=== PATIENT | male | born 1950 | race Hispanic/Latino ===

== ENCOUNTER 2016-12-31 06:43 | Day surgery (SDC) | payer MEDICARE, BC ==
[2016-12-30 12:30] VITALS: BMI 26.6
[2016-12-31 07:10] LABS: ADD MANUAL DIFF? NO
[2016-12-31 07:19] LABS: BASO # 0.06 K/mm3 (0.0-2.0); BASO % 1.1 % (0.0-3.0); EOS # 0.5 (0.0-0.7); EOS % 9.1 % (1.5-5.0); GRAN # 3.82 (1.4-6.5); GRAN % 66.9 % (50.0-68.0); HEMATOCRIT 44.5 % (42.0-52.0); LYMPH # 0.7 (1.2-3.4); LYMPH % 12.6 % (22.0-35.0); MEAN CELL VOLUME 88.6 fL (80.0-105.0); MEAN CORPUSCULAR HEMOGLOBIN 31.3 pg (25.0-35.0); MEAN CORPUSCULAR HGB CONC 35.3 g/dl (31.0-37.0); MEAN PLATELET VOLUME 9.4 fl (7.0-11.0); MONO # 0.6 (0.1-0.6); MONO % 10.3 % (1.0-6.0); PLATELET COUNT 154 10^3/uL (120.0-450.0); RED CELL DISTRIBUTION WIDTH 13.9 % (11.5-14.5); WHITE BLOOD COUNT 5.7 10^3/ul (4.5-11.0)
[2016-12-31 07:31] LABS: BLOOD UREA NITROGEN 19 mg/dL (7-21); CALCIUM 9.1 mg/dL (8.4-10.5); CARBON DIOXIDE 25 mmol/L (21-33); CHLORIDE 106 mmol/L (98-107); GFR AFRICAN-AMERICAN > 60; GLUCOSE,RANDOM 115 mg/dL (70-110); POTASSIUM 3.8 mmol/L (3.6-5.0); SODIUM 141 mmol/L (132-148)
[2016-12-31 07:32] LABS: INR 1.07 (0.93-1.08); PARTIAL THROMBOPLASTIN TIME 27.7 Seconds (23.7-30.8)
--- NOTE | 2016-12-31 07:45 | CP.SDSHP ---
Same Day Surgery H & P - History Proposed Procedure: rt lung Bx. Pre-Op Diagnosis: rt lung nodule . - Previous Medical/Surgical History Cardiac: Hypertension Pulmonary: Smoking Endocrine/Metabolic: Diabetes Neuro: Backaches, Other (periphreal neuropathy.) Pain: 0. No Pain - Allergies Allergies: Allergies No Known Allergies Allergy (Verified 03/05/12 07:37) - Physical Exam General Appearance: WNL. Vital Signs: Vital Signs 12/31/16 07:28 Temperature 97.8 F Pulse Rate 77 Respiratory 18 Rate Blood Pressure 132/82 O2 Sat by Pulse 94 L Oximetry Mental Status: Alert & Oriented x3 Neuro: WNL Heart: WNL Lungs: WNL GI: WNL - {Optional Preform as Required} Other Pertinent Findings: GERD,hiatal hernia. - Impression Impression: rt lung nodule. - Date & Time Date: 12/31/16 Time: 08:00 Short Stay Discharge - Short Stay Discharge Admitting Diagnosis/Reason for Visit: LUNG NODULE R91.1
[2016-12-31] MEDS ORDERED: Midazolam 2 MG/2 ML VIAL ONE ×2 (08:55→09:23)
[2016-12-31] MEDS ORDERED: Oxycodone/Acetaminophen 5/325 mg Tab PO PRN (09:34)
[2016-12-31] MEDS ORDERED: Sodium Chloride 0.45% 1,000 ML IV SCH (09:45)
[2016-12-31] MEDS ORDERED: Oxycodone/Acetaminophen 5/325 mg Tab ONE (11:32)
[2016-12-31 11:46] VITALS: RESP 20; TEMP 98.6
--- NOTE | 2016-12-31 11:49 | CT ---
PROCEDURE: CT guided right upper lobe lung biopsy. HISTORY: Solitary 15 mm right apical lung nodule. Evaluate for malignancy. PHYSICIAN(S): Shahbaz Holliday MD. TECHNIQUE: The relative risks and indications of the procedure were explained to the patient and consent obtained. The patient was placed supine on the CT scanner and preliminary images through the lungs obtained. Conscious sedation and monitoring were provided throughout the procedure by a nurse. There is a 15 mm crescent-shaped nodule in the right upper lobe anteriorly.. A obliques right anterior approach was selected and the area prepped and draped in the usual sterile fashion. 1% Xylocaine was used to anesthetize the skin and soft tissues. A 19 gauge guiding needle was advanced into the 15 mm right upper lobe nodule. Its position was confirmed with CT. Using coaxial technique, multiple core biopsies were obtained. The postprocedure images show no evidence of large pneumothorax or significant hemorrhage. IMPRESSION: 1. CT-guided right upper lobe lung biopsy as described above.
[2016-12-31 12:01] VITALS: BP 126/77; PULSE 65; O2SAT 95
--- NOTE | 2016-12-31 12:41 | RAD ---
HISTORY: rt lung bx COMPARISON: No prior. FINDINGS: LUNGS: No active pulmonary disease. PLEURA: No significant pleural effusion identified, no pneumothorax apparent. CARDIOVASCULAR: Normal. OSSEOUS STRUCTURES: No significant abnormalities. VISUALIZED UPPER ABDOMEN: Normal. OTHER FINDINGS: None. IMPRESSION: No active disease.
== END 2016-12-31 13:36 | disposition home or self-care (01) ==
LOC: SDS 06:43
PROVIDERS: ATTEND Radiology Vascular & Interventional Radiology
DX: C34.11 Malignant neoplasm of upper lobe, right bronchus or lung (principal); I10 Essential (primary) hypertension; F17.200 Nicotine dependence, unspecified, uncomplicated; E11.9 Type 2 diabetes mellitus without complications; G62.9 Polyneuropathy, unspecified; K21.9 Gastro-esophageal reflux disease without esophagitis; K44.9 Diaphragmatic hernia without obstruction or gangrene
CPT/HCPCS: 32405; 36415; 71010; 77012; 80048; 85025; 85610; 85730; 88305; J2250; J2405; J3010; J7030

== ENCOUNTER 2018-09-23 03:36 | Inpatient (IN) | payer MEDICARE, BC ==
[2018-09-23] MEDS ORDERED: Sodium Chloride 0.9% 1,000 ML IV STA ×2 (04:05→06:50)
--- NOTE | 2018-09-23 04:07 | ED PDOC ---
Arrival/HPI - General Chief Complaint: GI Problem Time Seen by Provider: 09/23/18 03:39 Historian: Patient - History of Present Illness Narrative History of Present Illness (Text): 09/23/18 04:04 68 year old male, whose past medical history includes lung cancer, prostate cancer, hypertension, and esophageal stricture, presents to the emergency department complaining of left sided flank/abdominal discomfort associated with inability to have a bowel movement, nausea, and decrease appetite that began yesterday morning. Patient denies any similar symptoms in the past. Patient denies any fever, chills, chest pain, shortness of breath, vomiting, diarrhea, urinary symptoms, back pain, neck pain, headache, dizziness, or any other complaints. PMD: Dr. Josette Holliday Time/Duration: 24 hours Symptom Onset: Gradual Symptom Course: Unchanged Activities at Onset: Light Context: Home Past Medical History - Provider Review Nursing Documentation Reviewed: Yes - Cardiac Hx Hypertension: Yes Hx Pacemaker: No - Pulmonary Other/Comment: R lobectomy - Neurological Hx Paralysis: No (NEUROPATHY--FEET BILATERAL) - Hematological/Oncological Hx Blood Transfusions: No - Musculoskeletal/Rheumatological Hx Musculoskeletal Disorders: Yes - Genitourinary/Gynecological Hx Prostate Cancer: Yes - Psychiatric Hx Emotional Abuse: No Hx Physical Abuse: No Hx Substance Use: No - Surgical History Other/Comment: 4 knee surgeries. shoulder surgery. nose surgery - Anesthesia Hx Anesthesia Reactions: Yes (PREVIOUSLY R/T/ ETOH INTAKE WHEN HAD SURGERY) Hx Malignant Hyperthermia: No - Suicidal Assessment Feels Threatened In Home Enviroment: No Family/Social History - Physician Review Nursing Documentation Reviewed: Yes Family/Social History: No Known Family HX Smoking Status: Never Smoked Hx Alcohol Use: No Hx Substance Use: No Allergies/Home Meds Allergies/Adverse Reactions: Allergies No Known Allergies Allergy (Verified 09/23/18 03:58) Home Medications: Home Meds Medication Instructions Recorded Confirmed Losartan [Cozaar] 100 mg PO QAM 06/30/13 09/23/18 Esomeprazole Magnesium [Nexium] 20 mg PO DAILY 12/30/16 09/23/18 Zolpidem [Ambien] 10 mg PO HS PRN 12/30/16 09/23/18 Review of Systems - Physician Review All systems were reviewed & negative as marked: Yes - Review of Systems Constitutional: absent: Fevers, Other (Chills) Respiratory: absent: SOB Cardiovascular: absent: Chest Pain Gastrointestinal: Abdominal Pain, Nausea, Appetite Changes, Other (inability to have a bowel movement) Genitourinary Male: absent: Dysuria, Frequency, Hematuria Musculoskeletal: absent: Back Pain, Neck Pain Neurological: absent: Headache, Dizziness Physical Exam Vital Signs Reviewed: Yes Vital Signs Temp Pulse Resp BP Pulse Ox 09/23/18 03:57 99.2 F 79 20 191/111 H 96 Temperature: Afebrile Blood Pressure: Hypertensive Pulse: Regular Respiratory Rate: Normal Appearance: Positive for: Well-Appearing, Non-Toxic, Comfortable Pain Distress: None Mental Status: Positive for: Alert and Oriented X 3 - Systems Exam Head: Present: Atraumatic, Normocephalic Pupils: Present: PERRL Extroacular Muscles: Present: EOMI Conjunctiva: Present: Normal Mouth: Present: Moist Mucous Membranes Neck: Present: Normal Range of Motion Respiratory/Chest: Present: Clear to Auscultation, Good Air Exchange. No: Respiratory Distress, Accessory Muscle Use Cardiovascular: Present: Regular Rate and Rhythm, Normal S1, S2. No: Murmurs Abdomen: Present: Tenderness (mild left-sdied tenderness). No: Distention, Peritoneal Signs, Rebound, Guarding, McBurney's Point Tender Back: Present: Normal Inspection, CVA Tenderness (left) Upper Extremity: Present: Normal Inspection. No: Cyanosis, Edema Lower Extremity: Present: Normal Inspection. No: Edema Neurological: Present: GCS=15, CN II-XII Intact, Speech Normal, Motor Func Grossly Intact, Normal Sensory Function Skin: Present: Warm, Dry, Normal Color. No: Rashes Psychiatric: Present: Alert, Oriented x 3, Normal Insight, Normal Concentration Medical Decision Making ED Course and Treatment: 09/23/18 04:05 Impression: 68 year old male presents complaining of left sided abdominal/flank discomfort associated with inability to have a bowel movement, decrease appetite, and nausea that began yesterday morning. Plan: -- CT Abd & Pelvis IV Contrast -- Labs -- IV Fluids -- Zofran Inj -- Reassess and disposition Prior Visits: Notes and results from previous visits were reviewed. Progress Notes: 09/23/18 06:53 Case was discussed with who accepts to his service/request /Clint on consult. - Lab Interpretations I have reviewed the lab results: Yes - RAD Interpretation Narrative RAD Interpretations (Text): 09/23/18 06:30 CT Abd/Pelvis- CLINICAL HISTORY: Left-sided abdominal pain. TECHNIQUE: Multiple axial and coronal CT images were obtained through the abdomen and pelvis after administration of intravenous contrast material. COMMENTS: Fat containing umbilical hernia without incarceration. 4.7 mm obstructing stone of the left ureter at L4/L5 level. Mild left hydroureteronephrosis with perinephric fat stranding. 3 mm left renal nonobstructing stone. Left renal simple cysts with the largest measuring 2.5 cm. Uncomplicated colonic diverticulosis. Mild constipation. Mild prostatomegaly. Mild diffuse thickening of the bladder. Fat containing left inguinal hernia without incarceration. Distended, mildly thickened gallbladder. Impacted gallstone in the neck of the gallbladder. The liver is of uniform attenuation without mass or defect. There is no intra or extrahepatic biliary ductal dilatation. The spleen is normal. The pancreas is of normal contour and attenuation characteristics. There is no evidence of adrenal mass. Both kidneys demonstrate prompt and equal nephrograms. The kidneys are normal in size, shape and configuration. There is no evidence of renal or ureteral mass. No right ureteral calculi are identified. There is no right hydroureter or hydronephrosis. No evidence for appendicitis. There is no bowel wall thickening. No evidence for small or large bowel obstruction. There is no evidence of abdominal ascites or lymphadenopathy. There is no evidence of intrinsic or extrinsic bladder mass. There is no pelvic ascites or lymphadenopathy. Images of the lung bases show no evidence of pleural or parenchymal mass. There are no pleural effusions. The bony structures are free of lytic or blastic le sions. IMPRESSION: Fat containing umbilical hernia without incarceration. 4.7 mm obstructing stone of the left ureter at L4/L5 level. Mild left hydroureteronephrosis with perinephric fat stranding. 3 mm left renal nonobstructing stone. Left renal simple cysts with the largest measuring 2.5 cm. Uncomplicated colonic diverticulosis. Mild constipation. Mild prostatomegaly. Mild diffuse thickening of the bladder. Fat containing left inguinal hernia without incarceration. Distended, mildly thickened gallbladder. Impacted gallstone in the neck of the gallbladder. Sonographic evaluation is suggested to exclude developing acute inflammatory pathology. Medical Photographer: Radiologist - Scribe Statement The provider has reviewed the documentation as recorded by the Scribe Arjun Aminour Provider Michelle Attestation: All medical record entries made by the Michelle were at my direction and personally dictated by me. I have reviewed the chart and agree that the record accurately reflects my personal performance of the history, physical exam, medical decision making, and the department course for this patient. I have also personally directed, reviewed, and agree with the discharge instructions and disposition. Disposition/Present on Arrival - Present on Arrival Any Indicators Present on Arrival: No History of DVT/PE: No History of Uncontrolled Diabetes: No Urinary Catheter: No History of Decub. Ulcer: No History Surgical Site Infection Following: None - Disposition Have Diagnosis and Disposition been Completed?: Yes Diagnosis: Renal colic on left side, Nephrolithiasis, Cholelithiasis Disposition: HOSPITALIZED Disposition Time: 06:46 Patient Plan: Admission Patient Problems: Current Active Problems Problem Status Onset Cholelithiasis Acute Nephrolithiasis Acute Renal colic on left side Acute Condition: STABLE Forms: [facility] (Kiswahili)
[2018-09-23] MEDS ORDERED: Morphine 2 mg/ml ISec IVP STA (04:45)
[2018-09-23] MEDS ORDERED: Iohexol 350 MG/100 ML VIAL ONE (04:52)
[2018-09-23 05:12] LABS: HEMOGLOBIN 15.9 g/dL (14.0-18.0); MEAN CELL VOLUME 90.2 fl (80.0-105.0); MEAN CORPUSCULAR HEMOGLOBIN 30.5 pg (25.0-35.0); MEAN CORPUSCULAR HGB CONC 33.8 g/dl (31.0-37.0); MEAN PLATELET VOLUME 9.5 fl (7.0-11.0); RBC 5.21 10^6/uL (3.5-6.1); RED CELL DISTRIBUTION WIDTH 14.1 % (11.5-14.5); WHITE BLOOD COUNT 7.4 10^3/uL (4.5-11.0)
[2018-09-23 05:28] LABS: ALB/GLOB RATIO 1.7 (1.1-1.8); ALBUMIN 4.6 g/dL (3.0-4.8); ALT/SGPT 34 U/L (7-56); AST/SGOT 30 U/L (17-59); BLOOD UREA NITROGEN 18 mg/dL (7-21); GFR NON-AFRICAN AMERICAN > 60; LIPASE 64 U/L (23-300)
--- NOTE | 2018-09-23 09:03 | HP ---
DATE OF EXAM: 09/23/2018 HISTORY OF PRESENT ILLNESS: I was called down to the emergency room to admit him by the ER doctor. He is a 68-year-old white man who presents to the emergency room complaining of left-sided flank pain, abdominal pain with, problem having a bowel movement, also nauseous and decreased appetite began 24 to 48 hours and severe constipation. He is a 68-year-old white male with past medical history including lung cancer, prostate cancer, hypertension, esophageal stricture. He sees Dr. Clint STORY. He has neuropathy in both his feet. He had a right lobectomy. He has prostate cancer. He had 4 knee surgeries, shoulder surgery, surgery. FAMILY HISTORY: No known family history. SOCIAL HISTORY: Never smoked. No alcohol. No drugs. ALLERGIES: NO KNOWN DRUG ALLERGIES. MEDICATIONS: He is on Cozaar for blood pressure, Nexium for GERD and Ambien for insomnia. REVIEW OF SYSTEMS: No fever or chills. No shortness of breath, no chest pain or palpitations. He has abdominal pain and appetite changes. He can have a bowel movement, feels constipated. He has no problems urinating. No pain with urination. No blood. No back pain, no neck pain, no headache or dizziness. PHYSICAL EXAMINATION: VITAL SIGNS: 99.2 temperature, 79 pulse, 20 respiratory rate, 199/111 blood pressure is very high, 96% O2 sat is having a temperature. GENERAL: He is well appearing, nontoxic after morphine. Alert and oriented x3, was having severe back pain. HEENT: Head is atraumatic, normocephalic. Extraocular muscles are intact. Pupils are equal and reactive to light and accommodation. Throat is moist. NECK: Supple. HEART: Regular rate. Normal S1, S2. LUNGS: Decreased breath sounds but clear to auscultation bilaterally. ABDOMEN: He is tender, left-sided tenderness, quite painful, questionable guarding, no rebound. No guarding, no rebound in other parts of the belly. Mild CVA tenderness in the left. EXTREMITIES: No edema. GCS is 15. NEUROLOGIC: Cranial nerves II-XII grossly intact. Normal speech. Alert and oriented x3. SKIN: Warm and dry. No apparent rashes or ulcers. LYMPH: Thyroid midline. No palpable appreciable lymphadenopathy. LABORATORY DATA: He had multiple tests done. He has a 143 sodium, potassium 4.1, BUN 82, creatinine 1, GFR is greater than 60, sugar is 131, calcium is 10. Total bili is 1.4, AST is 30, ALT 34, alk phos 62, total protein 7.4. Albumin is 4.6, lipase is 64. He has 7.4 white count, 15.9 hemoglobin, 47 hematocrit, 194 platelets. He did have a CT scan of the abdomen and pelvis, it has not resulted yet. centimeter obstructing stone with fever. He also has a gallstone. He has abdominal pain, hypertension, temperature, he will be on his IV fluids, Ambien, Cozaar, Protonix IV. He will be n.p.o. except for meds. Last temperature was 99. Last blood pressure was 147/91, so when the pain is away, his blood pressure definitely comes back down. We will keep a close eye on him. We will see what the doctors have to say. He might need to have a stent placed for the stone. The patient is here for renal colic, gallstone, abdominal pain and hypertension. Eyad Worley DO MTDD
--- NOTE | 2018-09-23 09:37 | CP.PCM.CON ---
<Romero Reinoso - Last Filed: 09/23/18 11:50> History of Present Illness - History of Present Illness History of Present Illness: PGY6 GI Fellow Consult Note Patient is a 68yo male with PMHx significant for right upper lobe lung cancer s/p lobectomy, prostate cancer s/p XRT, Medel's esophagus, eosinophilic esophagitis, distal esophageal stricture (suspect peptic stricture) s/p multiple balloon dilations and hiatal hernia who presented to the ED with left sided abdominal/flank pain. Pain began yesterday morning and progressively intensified to the point where he could not sleep and came to the ED for evaluation. Symptoms began in the LUQ and radiated downward and in to his left flank and back. He denies any dysuria, hematuria, nausea, vomiting or postprandial discomfort but does admit to constipation for 2 days. He has a history of a distal esophageal stricture and eosinophilic esophagitis which dysphagia in the past. Admits to intermittent dysphagia and globus sensation for which he has modified his diet and pays attention to chew food well. Denies any weight loss, odynophagia. 12 system ROS performed and negative except where stated PMHx: See HPI PSHx: RUL lobectomy, left knee and shoulder arthroscopy FHx: Discussed with patient and he denies significant family history Social: Former tobacco/marijuana smoker (quit>20 years ago), former EtOH use (quit >4 years ago) Endo: Multiple endoscopies with most recent on 04/26/2015; prior colonoscopy incomplete due to poor prep Past Patient History - Past Social History Smoking Status: Never Smoked - CARDIAC Hx Hypertension: Yes Hx Pacemaker: No - PULMONARY Other/Comment: R lobectomy - NEUROLOGICAL Hx Paralysis: No (NEUROPATHY--FEET BILATERAL) - HEMATOLOGICAL/ONCOLOGICAL Hx Blood Transfusions: No - MUSCULOSKELETAL/RHEUMATOLOGICAL Hx Musculoskeletal Disorders: Yes - GENITOURINARY/GYNECOLOGICAL Hx Prostate Cancer: Yes - PSYCHIATRIC Hx Emotional Abuse: No Hx Physical Abuse: No - SURGICAL HISTORY Other/Comment: 4 knee surgeries. shoulder surgery. nose surgery - ANESTHESIA Hx Anesthesia Reactions: Yes (PREVIOUSLY R/T/ ETOH INTAKE WHEN HAD SURGERY) Hx Malignant Hyperthermia: No Meds Allergies/Adverse Reactions: Allergies Allergy/AdvReac Type Severity Reaction Status Date / Time No Known Allergies Allergy Verified 09/23/18 03:58 - Medications Medications: Current Medications Sodium Chloride (Sodium Chloride 0.9%) 1,000 mls @ 100 mls/hr IV .Q10H STA Stop: 09/23/18 16:49 Last Admin: 09/23/18 09:11 Dose: 100 mls/hr Losartan Potassium (Cozaar) 100 mg PO QAM [facility] Last Admin: 09/23/18 09:10 Dose: 100 mg Morphine Sulfate (Morphine) 2 mg IVP Q3 PRN PRN Reason: Pain, moderate (4-7) Ondansetron HCl (Zofran Inj) 4 mg IVP Q6H PRN PRN Reason: Nausea/Vomiting Pantoprazole Sodium (Protonix Inj) 40 mg IVP DAILY [facility] Last Admin: 09/23/18 09:10 Dose: 40 mg Zolpidem Tartrate (Ambien) 10 mg PO HS PRN; Protocol PRN Reason: Insomnia Physical Exam - Constitutional Appears: Non-toxic, No Acute Distress - Eye Exam Eye Exam: EOMI, PERRL - ENT Exam ENT Exam: Mucous Membranes Moist - Respiratory Exam Respiratory Exam: Clear to Auscultation Bilateral. absent: Rales, Rhonchi, Wheezes - Cardiovascular Exam Cardiovascular Exam: RRR, +S1, +S2 - GI/Abdominal Exam GI & Abdominal Exam: Normal Bowel Sounds, Soft. absent: Distended, Firm, Guarding, Organomegaly, Rigid, Tenderness - Extremities Exam Extremities exam: Positive for: normal inspection. Negative for: pedal edema - Neurological Exam Neurological exam: Alert, Oriented x3 - Psychiatric Exam Psychiatric exam: Normal Affect, Normal Mood - Skin Skin Exam: Dry, Warm Results - Vital Signs Recent Vital Signs: Last Vital Signs Temp 99 F 09/23/18 07:36 Pulse 71 09/23/18 07:36 Resp 16 09/23/18 07:36 BP 147/91 H 09/23/18 07:36 Pulse Ox 96 09/23/18 07:36 - Labs Result Diagrams: 09/23/18 04:12 09/23/18 04:12 Labs: Laboratory Results - last 24 hr 09/23/18 09/23/18 04:12 04:12 WBC 7.4 RBC 5.21 Hgb 15.9 Hct 47.0 MCV 90.2 MCH 30.5 MCHC 33.8 RDW 14.1 Plt Count 194 MPV 9.5 Sodium 143 Potassium 4.1 Chloride 105 Carbon Dioxide 29 Anion Gap 13 BUN 18 Creatinine 1.0 Est GFR ( Amer) > 60 Est GFR (Non-Af Amer) > 60 Random Glucose 131 H Calcium 10.0 Total Bilirubin 1.4 H AST 30 ALT 34 Alkaline Phosphatase 62 Total Protein 7.4 Albumin 4.6 Globulin 2.8 Albumin/Globulin Ratio 1.7 Lipase 64 Assessment & Plan - Assessment and Plan (Free Text) Assessment: Patient is a 68yo male with PMHx significant for right upper lobe lung cancer s/p lobectomy, prostate cancer s/p XRT, Medel's esophagus, eosinophilic esophagitis, distal esophageal stricture (suspect peptic stricture) s/p multiple balloon dilations and hiatal hernia who presented to the ED with left sided abdominal/flank pain -Left sided abdominal and flank pain suspect 2/2 left nephrolithiasis/hydronephrosis, renal colic -Cholelithiasis -Intermittent dysphagia with H/O distal esophageal stricture -H/O lung/prostate cancer -H/O Medel's esophagus without dysplasia -H/O Eosinophilic esophagitis Plan: -Suspect discomfort a result of left sided nephrolithiasis/renal colic, tx per primary service -Incidental finding of cholelithiasis on CT imaging -Given elevated T bili - check direct bilirubin r/o Gilbert's syndrome -Check U/S abdomen to further evaluate -Diet as tolerated -Plan for outpatient EGD given H/O stricture and for BE surveillance - Date & Time Date: 09/23/18 Time: 08:30 <Miriam Jaramillo V - Last Filed: 09/23/18 22:04> Meds - Medications Medications: Current Medications [facility]) [facility] [place] Last Admin: 09/23/18 09:10 Dose: 100 mg Morphine Sulfate (Morphine) 2 mg IVP Q3 PRN PRN Reason: Pain, moderate (4-7) Last Admin: 09/23/18 19:52 Dose: 2 mg Ondansetron HCl (Zofran Inj) 4 mg IVP Q6H PRN PRN Reason: Nausea/Vomiting Pantoprazole Sodium (Protonix Inj) 40 mg IVP DAILY [facility] Last Admin: 09/23/18 09:10 Dose: 40 mg Sodium Chloride ([place] Nasal [place]) 0 ml NS Q2H PRN PRN Reason: Nasal congestion Zolpidem Tartrate (Ambien) 10 mg PO HS PRN; Protocol PRN Reason: Insomnia Results - Vital Signs Recent Vital Signs: Last Vital Signs Temp 97.8 F 09/23/18 17:04 Pulse 60 09/23/18 17:04 Resp 20 09/23/18 17:04 BP 118/80 09/23/18 17:04 Pulse Ox 95 09/23/18 17:04 - Labs Result Diagrams: 09/23/18 04:12 09/23/18 04:12 Labs: Laboratory Results - last 24 hr 09/23/18 09/23/18 09/23/18 04:12 04:12 05:00 WBC 7.4 RBC 5.21 Hgb 15.9 Hct 47.0 MCV 90.2 MCH 30.5 MCHC 33.8 RDW 14.1 Plt Count 194 MPV 9.5 Sodium 143 Potassium 4.1 Chloride 105 Carbon Dioxide 29 Anion Gap 13 BUN 18 Creatinine 1.0 Est GFR ( Amer) > 60 Est GFR (Non-Af Amer) > 60 Random Glucose 131 H Calcium 10.0 Total Bilirubin 1.4 H Direct Bilirubin 0.2 AST 30 ALT 34 Alkaline Phosphatase 62 Total Protein 7.4 Albumin 4.6 Globulin 2.8 Albumin/Globulin Ratio 1.7 Lipase 64 Urine Color Urine Appearance Urine pH Ur Specific [place] Urine Protein Urine Glucose (UA) Urine Ketones Urine Blood Urine Nitrate Urine Bilirubin Urine Urobilinogen Ur Leukocyte Esterase Urine RBC Urine WBC Ur Epithelial Cells Urine Bacteria 09/23/18 10:45 WBC RBC Hgb Hct MCV MCH MCHC RDW Plt Count MPV Sodium Potassium Chloride Carbon Dioxide Anion Gap BUN Creatinine Est GFR ( Amer) Est GFR (Non-Af Amer) Random Glucose Calcium Total Bilirubin Direct Bilirubin AST ALT Alkaline Phosphatase Total Protein Albumin Globulin Albumin/Globulin Ratio Lipase Urine Color Yellow Urine Appearance Clear Urine pH 6.0 Ur Specific [place] 1.015 Urine Protein Negative Urine Glucose (UA) Negative Urine Ketones Negative Urine Blood Moderate H Urine Nitrate Negative Urine Bilirubin Negative Urine Urobilinogen 0.2 Ur Leukocyte Esterase Negative Urine RBC 20 - 25 H Urine WBC 0 - 2 Ur Epithelial Cells 0 - 2 Urine Bacteria Few Attending/Attestation - Attestation I have personally seen and examined this patient.: Yes I have fully participated in the care of the patient.: Yes I have reviewed all pertinent clinical information: Yes Notes (Text): This is an addendum to GI consult report dictated by the GI Fellow. The patient was seen and examined earlier. Medical records, lab studies, imagings were reviewed. Last 24 hours events reviewed. Agreed with the above treatment plan as outlined in GI Fellow 's notes with the addition of the following patient admitted with abdominal pain,flank pain probably ureteric colic CT scan and sonogram were reviewed patient was also found to have gallstones with borderline dilated CBD measuring 6.4mm ?prominent PD requested MRI with MRCP to further evaluate History of Medel's esophaus History of eosinophilic esophagitis History of colon polyp Continue PPI Elective EGD and colonoscopy urology follow-up 09/23/18 21:36 7
[2018-09-23 09:47] VITALS: BMI 27.2
[2018-09-23] MEDS: Morphine 2 mg/ml ISec IVP PRN ×4 (09:50→23:58)
--- NOTE | 2018-09-23 09:56 | CT ---
Date of service: 09/23/2018 PROCEDURE: CT Abdomen and Pelvis with contrast HISTORY: abdominal pain COMPARISON: None. TECHNIQUE: Contrast dose: Radiation dose: Total exam DLP = 1029.08 mGy-cm. This CT exam was performed using one or more of the following dose reduction techniques: Automated exposure control, adjustment of the mA and/or kV according to patient size, and/or use of iterative reconstruction technique. FINDINGS: LOWER THORAX: Elevated right hemidiaphragm. Small hiatal hernia. LIVER: Multiple hepatic cysts. GALLBLADDER AND BILE DUCTS: Gallstones. PANCREAS: Unremarkable. No gross lesion or ductal dilatation. SPLEEN: Unremarkable. ADRENALS: Unremarkable. No mass. KIDNEYS AND URETERS: Bilateral renal cysts with a hydronephrotic left kidney. With a roughly 3 millimeter calculus in the mid left ureter accompanying periureteral and perinephric infiltration. VASCULATURE: Unremarkable. No aortic aneurysm. No aortic atherosclerotic calcification or mural plaque present. BOWEL: Unremarkable. No obstruction. No gross mural thickening. APPENDIX: Normal appendix. PERITONEUM: Unremarkable. No free fluid. No free air. LYMPH NODES: Unremarkable. No enlarged lymph nodes. BLADDER: Unremarkable. REPRODUCTIVE: Unremarkable. BONES: No acute fracture. OTHER FINDINGS: None. IMPRESSION: Bilateral renal cysts with a hydronephrotic left kidney. With a roughly 3 millimeter calculus in the mid left ureter accompanying periureteral and perinephric infiltration.
[2018-09-23 10:55] LABS: URINE APPEARANCE CLEAR (CLEAR); URINE BILIRUBIN NEGATIVE (NEGATIVE); URINE BLOOD MODERATE (NEGATIVE); URINE COLOR YELLOW (YELLOW); URINE GLUCOSE (UA) NEGATIVE (NEGATIVE); URINE LEUKOCYTE ESTERASE NEGATIVE Leu/uL (NEGATIVE); URINE PROTEIN NEGATIVE mg/dL (<30 mg/dL); URINE UROBILINOGEN 0.2 E.U./dL (<1 E.U./dL)
[2018-09-23 11:03] LABS: URINE BACTERIA FEW /hpf; URINE EPITHELIAL CELLS 0 - 2 /hpf (0-5); URINE RBC 20 - 25 /hpf (0-2); URINE WBC 0 - 2 /hpf (0-6)
--- NOTE | 2018-09-23 14:11 | US ---
Date of service: 09/23/2018 HISTORY: abdominal pain COMPARISON: None. TECHNIQUE: Sonographic evaluation of the abdomen. FINDINGS: LIVER: Measures cm. Normal echogenicity of the liver parenchyma. 2 centimeter right hepatic cyst. GALLBLADDER: Multiple gallstones. No wall thickening or pericholecystic fluid. COMMON BILE DUCT: Measures mm. No stones. No dilatation. PANCREAS: Not visualized. RIGHT KIDNEY: Measures cm. Normal echogenicity. No calculus, mass, or hydronephrosis. LEFT KIDNEY: Measures cm. 6.4 centimeter left pole renal cyst. SPLEEN: Normal in size and contour. No mass. AORTA: No aneurysmal dilatation. IVC: Unremarkable. OTHER FINDINGS: Limited by bowel gas. IMPRESSION: Multiple gallstones. Left upper pole renal cyst. Limited examination due to bowel gas.
--- NOTE | 2018-09-23 17:19 | RAD ---
Date of service: 09/23/2018 HISTORY: OR in am COMPARISON: 12/31/2016 FINDINGS: LUNGS: No active pulmonary disease. PLEURA: No significant pleural effusion identified, no pneumothorax apparent. CARDIOVASCULAR: No atherosclerotic calcification present Normal. OSSEOUS STRUCTURES: No significant abnormalities. VISUALIZED UPPER ABDOMEN: Normal. OTHER FINDINGS: None. IMPRESSION: No active disease. No significant interval change compared to the prior examination(s).
--- NOTE | 2018-09-23 18:46 | CARD ---
APPROVED REPORT Date of service: 09/23/2018 EKG Measurement Heart [id number] <Conclusion> Normal sinus rhythm Inferior infarct, age undetermined Abnormal ECG
--- NOTE | 2018-09-23 21:09 | PCM.URO ---
Urology Progress Note - Subjective Abdominal Pain: Yes (pt for cystoscopy) - Objective Lab Results Last 24 Hours: Laboratory Results - last 24 hr 09/23/18 09/23/18 09/23/18 04:12 04:12 05:00 WBC 7.4 RBC 5.21 Hgb 15.9 Hct 47.0 MCV 90.2 MCH 30.5 MCHC 33.8 RDW 14.1 Plt Count 194 MPV 9.5 Sodium 143 Potassium 4.1 Chloride 105 Carbon Dioxide 29 Anion Gap 13 BUN 18 Creatinine 1.0 Est GFR ( Amer) > 60 Est GFR (Non-Af Amer) > 60 Random Glucose 131 H Calcium 10.0 Total Bilirubin 1.4 H Direct Bilirubin 0.2 AST 30 ALT 34 Alkaline Phosphatase 62 Total Protein 7.4 Albumin 4.6 Globulin 2.8 Albumin/Globulin Ratio 1.7 Lipase 64 Urine Color Urine Appearance Urine pH Ur Specific [place] Urine Protein Urine Glucose (UA) Urine Ketones Urine Blood Urine Nitrate Urine Bilirubin Urine Urobilinogen Ur Leukocyte Esterase Urine RBC Urine WBC Ur Epithelial Cells Urine Bacteria 09/23/18 10:45 WBC RBC Hgb Hct MCV MCH MCHC RDW Plt Count MPV Sodium Potassium Chloride Carbon Dioxide Anion Gap BUN Creatinine Est GFR ( Amer) Est GFR (Non-Af Amer) Random Glucose Calcium Total Bilirubin Direct Bilirubin AST ALT Alkaline Phosphatase Total Protein Albumin Globulin Albumin/Globulin Ratio Lipase Urine Color Yellow Urine Appearance Clear Urine pH 6.0 Ur Specific [place] 1.015 Urine Protein Negative Urine Glucose (UA) Negative Urine Ketones Negative Urine Blood Moderate H Urine Nitrate Negative Urine Bilirubin Negative Urine Urobilinogen 0.2 Ur Leukocyte Esterase Negative Urine RBC 20 - 25 H Urine WBC 0 - 2 Ur Epithelial Cells 0 - 2 Urine Bacteria Few Intake & Output: Intake & Output 09/23/18 09/23/18 09/24/18 06:59 18:59 06:59 Weight 230 lb 230 lb Other: Voiding Method Toilet Vital Signs: Vital Signs - 24 hr 09/23/18 09/23/18 09/23/18 03:57 05:50 07:36 Temperature 99.2 F 99 F 99 F Pulse Rate 79 72 71 Respiratory 20 18 16 Rate Blood Pressure 191/111 H 167/92 H 147/91 H O2 Sat by Pulse 96 96 96 Oximetry 09/23/18 09/23/18 08:16 17:04 Temperature 97.8 F Pulse Rate 60 Respiratory 18 20 Rate Blood Pressure 118/80 O2 Sat by Pulse 95 Oximetry
[2018-09-24] MEDS: Sodium Chloride 0.9% 1,000 ML IV SCH ×2 (01:15→10:04)
[2018-09-24] MEDS: Morphine 2 mg/ml ISec IVP PRN ×4 (05:40→20:50)
[2018-09-24 06:41] LABS: MEAN CELL VOLUME 89.8 fl (80.0-105.0); MEAN CORPUSCULAR HEMOGLOBIN 29.8 pg (25.0-35.0); MEAN CORPUSCULAR HGB CONC 33.2 g/dl (31.0-37.0); MEAN PLATELET VOLUME 9.3 fl (7.0-11.0); RBC 4.53 10^6/uL (3.5-6.1); RED CELL DISTRIBUTION WIDTH 13.9 % (11.5-14.5); WHITE BLOOD COUNT 4.9 10^3/uL (4.5-11.0)
[2018-09-24 06:53] LABS: INR 1.26; PROTHROMBIN TIME 14.6 SECONDS (9.4-12.5)
[2018-09-24 06:54] LABS: HEMOGLOBIN 13.5 g/dL (14.0-18.0)
[2018-09-24 07:20] LABS: ALB/GLOB RATIO 1.4 (1.1-1.8); ALBUMIN 3.5 g/dL (3.0-4.8); ALT/SGPT 33 U/L (7-56); AST/SGOT 19 U/L (17-59); BLOOD UREA NITROGEN 16 mg/dL (7-21); CALCIUM 8.7 mg/dL (8.4-10.5); GFR NON-AFRICAN AMERICAN > 60
[2018-09-24] MEDS ORDERED: Iohexol 240 (50 ml) ONE (07:29)
[2018-09-24] MEDS ORDERED: Propofol 10 mg/ml Inj (20 ML) ONE (08:04)
[2018-09-24] MEDS ORDERED: Midazolam 2 MG/2 ML VIAL ONE (08:04)
[2018-09-24] MEDS ORDERED: Lidocaine 1% Inj (20ml) ONE (08:05)
[2018-09-24] MEDS ORDERED: ePHEDrine 50 mg/ml Inj ONE (08:18)
[2018-09-24] MEDS ORDERED: cefTRIAXone (Rocephin) 1 gm Inj IVPB ONE (08:25)
[2018-09-24] MEDS ORDERED: cefTRIAXone (Rocephin) 1 gm Inj ONE (08:27)
[2018-09-24] MEDS ORDERED: HYDROmorphone 0.5 mg/0.5 ml ISec IVP PRN (08:56)
[2018-09-24] MEDS ORDERED: Lactated Ringer's 1,000 ML IV SCH (09:00)
--- NOTE | 2018-09-24 09:28 | CP.PCM.PN ---
Subjective - Date & Time of Evaluation Date of Evaluation: 09/24/18 Time of Evaluation: 09:30 - Subjective Subjective: PGY6 GI Fellow Progress Note Patient seen and examined bedside this morning. The patient admits to sudden onset severe pain this morning relieved by analgesia. No episodes overnight. For ureteral stent placement today. 12 system ROS performed and negative except where stated Objective - Vital Signs/Intake and Output Vital Signs (last 24 hours): Temp Pulse Resp BP Pulse Ox 98.2 F 77 12 146/90 99 09/24/18 09:18 09/24/18 09:18 09/24/18 09:18 09/24/18 09:18 09/24/18 09:18 Intake and Output: 09/24/18 09/24/18 06:59 18:59 Intake Total 1200 0 Balance 1200 0 - Medications Medications: Current Medications Hydromorphone HCl (Dilaudid) 0.5 mg IVP Q15M PRN PRN Reason: Pain, Moderate/Severe (4-10) Sodium Chloride (Sodium Chloride 0.9%) 1,000 mls @ 100 mls/hr IV .Q10H [facility] Last Admin: 09/24/18 01:15 Dose: 100 mls/hr Lactated Ringer's (Lactated Ringer's) 1,000 mls @ 75 mls/hr IV .[id number] [facility] Stop: 09/24/18 11:01 Gentamicin Sulfate 80 mg/ (Sodium Chloride) 102 mls @ 100 mls/hr IVPB Q8H [facility]; Protocol Losartan Potassium (Cozaar) 100 mg PO QAM [facility] Last Admin: 09/23/18 09:10 Dose: 100 mg Morphine Sulfate (Morphine) 2 mg IVP Q3 PRN PRN Reason: Pain, moderate (4-7) Last Admin: 09/24/18 05:40 Dose: 2 mg Ondansetron HCl (Zofran Inj) 4 mg IVP Q6H PRN PRN Reason: Nausea/Vomiting Pantoprazole Sodium (Protonix Inj) 40 mg IVP DAILY [facility] Last Admin: 09/23/18 09:10 Dose: 40 mg Sodium Chloride ([place] Nasal [place]) 0 ml NS Q2H PRN PRN Reason: Nasal congestion Last Admin: 09/23/18 23:53 Dose: 1 spr Zolpidem Tartrate (Ambien) 10 mg PO HS PRN; Protocol PRN Reason: Insomnia - Labs Labs: 09/24/18 06:00 09/24/18 06:00 PT 14.6 SECONDS (9.4-12.5) H 09/24/18 06:00 INR 1.26 09/24/18 06:00 APTT 30.0 Seconds (25.1-36.5) 09/24/18 06:00 - Constitutional Appears: Non-toxic, No Acute Distress - Eye Exam Eye Exam: EOMI, PERRL - ENT Exam ENT Exam: Mucous Membranes Moist - Respiratory Exam Respiratory Exam: Clear to Ausculation Bilateral. absent: Rales, Rhonchi, Wheezes - Cardiovascular Exam Cardiovascular Exam: RRR, +S1, +S2 - GI/Abdominal Exam GI & Abdominal Exam: Soft, Normal Bowel Sounds. absent: Distended, Firm, Guarding, Rigid, Tenderness, Organomegaly - Extremities Exam Extremities Exam: Normal Inspection. absent: Pedal Edema - Neurological Exam Neurological Exam: Alert, Awake, Oriented x3 - Psychiatric Exam Psychiatric exam: Normal Affect, Normal Mood - Skin Skin Exam: Dry, Warm Assessment and Plan - Assessment and Plan (Free Text) Assessment: Patient is a 68yo male with PMHx significant for right upper lobe lung cancer s/p lobectomy, prostate cancer s/p XRT, Medel's esophagus, eosinophilic esophagitis, distal esophageal stricture (suspect peptic stricture) s/p multiple balloon dilations and hiatal hernia who presented to the ED with left sided abdominal/flank pain -Left sided abdominal and flank pain suspect 2/2 left neph rolithiasis/hydronephrosis, renal colic -Cholelithiasis -Intermittent dysphagia with H/O distal esophageal stricture -H/O lung/prostate cancer -H/O Medel's esophagus without dysplasia -H/O Eosinophilic esophagitis Plan: -Awaiting MRCP given biliary/PD dilation noted on imaging -Suspect Gilbert's syndrome given indirect hyperbilirubinemia -Diet as tolerated -Plan for outpatient EGD given H/O stricture and for BE surveillance
[2018-09-24] MEDS ORDERED: Gentamicin 80 mg/2mL Inj. ONE (09:34)
[2018-09-24] MEDS ORDERED: HYDROmorphone 0.5 mg/0.5 ml ISec ONE (09:34)
--- NOTE | 2018-09-24 10:40 | RAD ---
Date of service: 09/24/2018 PROCEDURE: Retrograde study and left stent placement HISTORY: STENT PLACEMENT COMPARISON: None TECHNIQUE: Standard protocol for this study/examination. FINDINGS: Total fluoroscopic time (continuous mode) utilized during the procedure 24.5 seconds. Total exam DLP: 9.33 (mGy). IMPRESSION: Less than 1 hr fluoroscopic assistance provided during performance of the procedure.
--- NOTE | 2018-09-24 11:28 | PN ---
DATE: 09/24/2018 SUBJECTIVE: He is status post cystoscopy with Dr. Sorensen. I am not sure what took place. They put a stent in or if they did anything with the stone. There are no notes yet from Urology. GI is seeing the patient also for gallstone. He is little bit in pain, status post cysto. I saw him in the recovery room. PHYSICAL EXAMINATION: VITAL SIGNS: Temperature 98.2, 77 pulse, 146/90 blood pressure, 12 respiratory rate, 99% O2 sat on 3 liters. He is asking for pain meds, status post procedure. HEENT: His head is atraumatic, normocephalic. HEART: Regular rate. LUNGS: Clear to auscultation. ABDOMEN: Soft. No guarding, no rebound or CVA tenderness. Decreased bowel sounds. EXTREMITIES: Have no edema. MEDICATIONS: He is currently on Ambien, Cozaar, Dilaudid, gentamicin, lactated Ringer's, morphine, [place] spray, Protonix, IV fluids and Zofran. LABORATORY DATA: He has a 4.9 white count, 13.5 hemoglobin, 40.7 hematocrit, 138 platelets. Sodium 140, potassium 3.7, BUN 60, creatinine 0.94, GFR greater than 60, sugar is 92. Calcium 8.7, total bili is 1.4. AST is 19, ALT is 33, alk phos 49, total protein is 6, lipase is 64. ASSESSMENT AND PLAN: Waiting for the plan from Urology and also the plan from Gastrointestinal if there is anything more they are going to do. We will keep him comfortable, intravenous fluids, status post procedure, pain medications. Check her labs tomorrow. Eyad Worley DO
[2018-09-24] MEDS ORDERED: POLYETHYLENE GLYCOL 3350 17 GM/Dose PACKET PO ONE (19:09)
[2018-09-25 01:18] VITALS: RESP 20
[2018-09-25 06:40] LABS: HEMOGLOBIN 12.7 g/dL (14.0-18.0); MEAN CELL VOLUME 89.3 fl (80.0-105.0); MEAN CORPUSCULAR HEMOGLOBIN 29.5 pg (25.0-35.0); MEAN PLATELET VOLUME 9.3 fl (7.0-11.0); RBC 4.31 10^6/uL (3.5-6.1); RED CELL DISTRIBUTION WIDTH 13.6 % (11.5-14.5)
[2018-09-25 06:47] LABS: ALB/GLOB RATIO 1.3 (1.1-1.8); ALBUMIN 3.4 g/dL (3.0-4.8); ALT/SGPT 31 U/L (7-56); AST/SGOT 24 U/L (17-59); BLOOD UREA NITROGEN 16 mg/dL (7-21); CALCIUM 8.4 mg/dL (8.4-10.5); GFR NON-AFRICAN AMERICAN > 60
[2018-09-25] MEDS ORDERED: Pantoprazole 40 mg EC Tab PO SCH (07:30)
[2018-09-25 08:06] VITALS: BP 130/84; PULSE 63; TEMP 98.4; O2SAT 94
[2018-09-25] MEDS: Sodium Chloride 0.9% 1,000 ML IV SCH (09:08)
--- NOTE | 2018-09-25 12:34 | MRI ---
Date of service: 09/24/2018 PROCEDURE: Magnetic Resonance Cholangiopancreatography HISTORY: Dilated CBD/pancreatic duct, rule out obstruction COMPARISON: Correlation is made to abdominal ultrasound and CT scan of the abdomen and pelvis performed 09/23/2018. TECHNIQUE: Multiplanar, multisequence MR images of the abdomen were obtained, including heavily T2 weighted MRCP images of the biliary system. Rotating maximum intensity projection images of the biliary system were generated. FINDINGS: MRCP: Dilated CBD measuring up to 1.0 cm. No evidence of choledocholithiasis. No intrahepatic biliary ductal dilatation. Pancreatic divisum. LIVER: Multiple hepatic cysts, the largest measures up to 2.9 cm. GALLBLADDER: Densely packed with sludge and multiple tiny gallstones. No wall thickening/edema or pericholecystic fluid. SPLEEN: Unremarkable. PANCREAS: Prominent pancreatic duct. ADRENALS: Unremarkable. KIDNEYS: Multiple bilateral renal cysts, the largest measures 4.7 cm in the left upper pole. AORTA: No aneurysm. ASCITES: None. OTHER FINDINGS: Questionable ampullary region mass measuring 1.8 x 1.7 cm (series 3, image 17; series 6, image 40)) IMPRESSION: Cholelithiasis with gallbladder sludge without evidence for acute cholecystitis. Dilated CBD right evidence of choledocholithiasis. Prominent pancreatic duct. Pancreatic divisum. No obvious pancreatic head mass although evaluation is limited in the absence of intravenous contrast. Questionable 1.8 cm ampullary region mass. Direct visualization recommended.
--- NOTE | 2018-09-25 13:22 | PN ---
DATE: 09/25/2018 SUBJECTIVE: I had spoken to Danielito this morning. He told me that Dr. Sorensen told him to be on gentamicin. He has a stent placed. Stone was not removed, but it was moved and he has been in less pain. His urine is supposed to be doing better now. There is also an MRCP pending from GI because he has a gallstone in the gallbladder. He is in bed, resting a little more comfortably. He is on major pain medications, Dilaudid and morphine. He is alert. He is trying to eat. He has not gotten out of bed yet. PHYSICAL EXAMINATION: VITAL SIGNS: He has 98.4 temperature, 60 pulse, 130/84 blood pressure, 20 respiratory rate, 94% sat on room air. HEAD: Atraumatic, normocephalic. HEART: Regular rate. LUNGS: Decreased breath sounds, but clear. ABDOMEN: Soft. Positive bowel sounds. No guarding. EXTREMITIES: No edema. MEDICATIONS: He is currently on Ambien, Cozaar, Dilaudid, gentamicin IV, morphine, [place] spray, Protonix, IV fluids and Zofran. LABORATORY DATA: He has 5 white count, 12.7 hemoglobin, 30.5 hematocrit with 149 platelets. He has 138 sodium, potassium 3.6, BUN 16, creatinine 0.9, GFR is greater than 60, sugar is 108, calcium 8.4, total bili is 1.1. AST is 24, ALT is 31, alk phos 48, total protein is 5.9, albumin is 3.4, lipase was 64. His urine had moderate blood. ASSESSMENT AND PLAN: So as per Urology, they did the stent placement after the cysto, He is on gentamicin. I am waiting for the MRCP results after GI. I want to get their opinion. I will discharge the patient when I am allowed to by Urology and GI. We will continue with aggressive treatment and care, status post cystoscopy and stent placement for stone and blockage with hydronephrosis of the kidney and gallstone. Eyad Worley DO
--- NOTE | 2018-09-25 14:31 | CP.PCM.PN ---
<RufinoMarianjordan - Last Filed: 09/25/18 14:27> Subjective - Date & Time of Evaluation Date of Evaluation: 09/25/18 Time of Evaluation: 11:20 - Subjective Subjective: PGY-4 GI Fellow Prog Note Pt sitting up in bed when seen this AM. State he feels better than day prior, abd pain improved, eager for possible DC. 5 point ROS negative other than stated above Objective - Vital Signs/Intake and Output Vital Signs (last 24 hours): Temp Pulse Resp BP Pulse Ox 98.4 F 63 20 130/84 94 L 09/25/18 08:05 09/25/18 08:05 09/25/18 08:05 09/25/18 08:05 09/25/18 08:05 Intake and Output: 09/25/18 09/25/18 06:59 18:59 Intake Total 1760 Output Total 725 Balance 1035 - Medications Medications: Current Medications Hydromorphone HCl (Dilaudid) 0.5 mg IVP Q15M PRN PRN Reason: Pain, Moderate/Severe (4-10) Last Admin: 09/24/18 09:35 Dose: 0.5 mg Sodium Chloride (Sodium Chloride 0.9%) 1,000 mls @ 100 mls/hr IV .Q10H [facility] Last Admin: 09/25/18 09:08 Dose: 100 mls/hr Losartan Potassium (Cozaar) 100 mg PO QAM [facility] Last Admin: 09/25/18 09:05 Dose: 100 mg Morphine Sulfate (Morphine) 2 mg IVP Q3 PRN PRN Reason: Pain, moderate (4-7) Last Admin: 09/24/18 20:50 Dose: 2 mg Ondansetron HCl (Zofran Inj) 4 mg IVP Q6H PRN PRN Reason: Nausea/Vomiting Pantoprazole Sodium (Protonix Ec Tab) 40 mg PO ACB [facility] Last Admin: 09/25/18 09:05 Dose: Not Given Sodium Chloride ([place] Nasal [place]) 0 ml NS Q2H PRN PRN Reason: Nasal congestion Last Admin: 09/23/18 23:53 Dose: 1 spr Zolpidem Tartrate (Ambien) 10 mg PO HS PRN; Protocol PRN Reason: Insomnia - Labs Labs: 09/25/18 05:30 09/25/18 05:30 PT 14.6 SECONDS (9.4-12.5) H 09/24/18 06:00 INR 1.26 09/24/18 06:00 APTT 30.0 Seconds (25.1-36.5) 09/24/18 06:00 - Constitutional Appears: Well, No Acute Distress - Head Exam Head Exam: ATRAUMATIC, NORMAL INSPECTION - Eye Exam Eye Exam: EOMI. absent: Conjunctival injection, Scleral icterus - ENT Exam ENT Exam: Mucous Membranes Moist. absent: Mucous Membranes Dry - Respiratory Exam Respiratory Exam: NORMAL BREATHING PATTERN. absent: Accessory Muscle Use, Respiratory Distress - GI/Abdominal Exam GI & Abdominal Exam: Soft, Tenderness (mildly ttp on L side w/o guarding), Normal Bowel Sounds. absent: Bruit, Distended, Firm, Guarding, Rigid, Mass, Organomegaly, Pulsatile Mass Assessment and Plan - Assessment and Plan (Free Text) Assessment: 68yo male with PMHx significant for right upper lobe lung cancer s/p lobectomy, prostate cancer s/p XRT, Medel's esophagus, eosinophilic esophagitis, distal esophageal stricture (suspect peptic stricture) s/p multiple balloon dilations and hiatal hernia who presented to the ED with left sided abdominal/flank pain -Left sided abdominal and flank pain suspect 2/2 left nephrolithiasis/hydronephrosis, renal colic -Cholelithiasis -Intermittent dysphagia with H/O distal esophageal stricture -H/O lung/prostate cancer -H/O Medel's esophagus without dysplasia -H/O Eosinophilic esophagitis -Possible Ampullary Mass: Seen on MRCP Plan: - CBD dilated but w/o obstruction on MRCP - Plan to follow possible ampullary mass as outpatient with EUS -Suspect Gilbert's syndrome given indirect hyperbilirubinemia -Diet as tolerated -Plan for outpatient EGD given H/O stricture and for BE surveillance -OK to DC from GI standpoint Pt seen and examined with Dr. Jaramillo; please see attestation for further rec/changes. Arpan Joy, PGY-4 <Miriam Jaramillo V - Last Filed: 09/25/18 22:41> Objective - Vital Signs/Intake and Output Vital Signs (last 24 hours): Temp Pulse Resp BP Pulse Ox 98.4 F 63 20 130/84 94 L 09/25/18 08:05 09/25/18 08:05 09/25/18 08:05 09/25/18 08:05 09/25/18 08:05 - Labs Labs: 09/25/18 05:30 09/25/18 05:30 PT 14.6 SECONDS (9.4-12.5) H 09/24/18 06:00 INR 1.26 09/24/18 06:00 APTT 30.0 Seconds (25.1-36.5) 09/24/18 06:00 Attending/Attestation - Attestation I have personally seen and examined this patient.: Yes I have fully participated in the care of the patient.: Yes I have reviewed all pertinent clinical information, including history, physical exam and plan: Yes Notes (Text): This is an addendum to GI progress report dictated by the GI Fellow. The patient was seen and examined earlier. Medical records, lab studies, imagings were reviewed. Last 24 hours events reviewed. Agreed with the above treatment plan as outlined in GI Fellow 's notes with the addition of the following Patient was comfortable Tolerating diet LFTs improved MRCP was reviewed Dilated CBD with questionable ampullary lesion Cholelithiasis Status post ureteric stent Patient was given contact details to schedule for outpatient EGD/EUS to further evaluate ?ampullary lesion 09/25/18 22:39
--- NOTE | 2018-10-07 09:18 | DS ---
He had a cystoscopy with Urology. He ended up doing very well with the cystoscopy, and we got a call back saying he was okay to be discharged. He wants to go home. He was also worked up with his gallbladder, that also improved and GI said that he could be followed up on the Outpatient and he was discharged home. Eyad Worley DO
--- NOTE | 2018-10-18 00:03 | HP ---
DATE OF EXAM: 10/17/2018 UROLOGY ADMISSION HISTORY AND PHYSICAL Please see previous admissions, consultation, and operative notes. Previously, he will be placed the stent to left renal colic. He is here today for further treatment. The plan for today to see below the cystoscopy, ureteroscopy, and laser of a stone. PAST MEDICAL AND SURGICAL HISTORY: No other changes. REVIEW OF SYSTEMS: As listed above, noncontributory. No weight loss, chest pain, shortness of breath. He does have stent discomfort. SOCIAL HISTORY: Unremarkable. MEDICATIONS: See chart. ALLERGIES: NO KNOWN DRUG ALLERGIES. PHYSICAL EXAMINATION VITAL SIGNS: Within normal limits including the chart. LUNGS: Clear. ABDOMEN: Overall soft. HEENT: Sclerae are nonicteric, noninjected. HEART: S1 and S2. NECK: No cervical or axillary lymphadenopathy. GENITOURINARY: Normal phallus. There are no testicular masses. RECTAL: 20 g prostate, felt smooth. LABORATORY DATA: See chart. DIAGNOSES: Left renal colic, urolithiasis, hematuria, hydronephrosis. ASSESSMENT: This is a very pleasant 68-year-old gentleman for a colic. He did not passed the stone. He had been straining during the night stone. He is here today for cystoscopy, ureteroscopy, laser lithotripsy. PLAN: 1. Antibiotic prophylaxis. 2. Cystoscopy. 3. Ureteroscopy. 4. Laser lithotripsy. Further plans will follow clinically. ADDENDUM: See the operative note. We could not find the stone, so we left him with stent with no . Joe Sorensen MD
--- NOTE | 2018-10-18 01:08 | PN ---
DATE: 09/24/2018 See the history and physical and operative note. The patient's vital signs are stable. The patient is status post cystoscopy and ureteroscopy. He is in the recovery room. The plan is to draining the urine. The plan is going to have a outpatient CT scan and then further plans will follow. Joe Sorensen MD
--- NOTE | 2018-10-18 01:48 | PN ---
DATE: 10/17/2018 UROLOGY IMMEDIATE POSTOP NOTE SUBJECTIVE: See the history and physical and consultation and operative note. The patient is now in recovery room in stable condition. PHYSICAL EXAMINATION: VITAL SIGNS: Within normal limits. The patient is status post cystoscopy, ureteroscopy, laser lithotripsy but we could not find the stones so there is no laser performed. There were no complications. Blood loss was less than 10 mL. The patient was in recovery room. Plan is for outpatient discharge and then the plan will be followup CT scan if there is any remnant stones. We will treat it, and ____ we will plan for removal. That will be the plan. Joe Sorensen MD
--- NOTE | 2018-10-18 06:26 | OP ---
PROCEDURE DATE: 09/24/2018 PREOPERATIVE DIAGNOSES: Urolithiasis, hematuria, hydronephrosis, severe renal colic, left flank pain. POSTOPERATIVE DIAGNOSES: Urolithiasis, hematuria, hydronephrosis, severe renal colic, left flank pain. PROCEDURES: Cystoscopy; removal of a double J stent, on the left side; left retrograde pyelogram; left ureteroscopy; attempted laser and a left double J stent insertion. SURGEON: Joe Sorensen MD. COMPLICATIONS: There were no complications. BLOOD LOSS: Less than 10 mL. FINDINGS: 1. Normal anterior urethra. No strictures. 2. 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 3. I was able to go up and down ureter. I do not see abnormalities, but I cannot find the stone (at the termination of the procedure, actually I have left a double J stent because the patient did not think he passed the stone, and I know that previously there was a stone). There were no complications. INDICATIONS: See history and physical for further details. A very pleasant andrea who is 68-year-old, here for the above procedure. The plan was cystourethroscopy, laser lithotripsy. I actually offered the patient and recommended to the patient that we got to the stone center but for various reasons including travel and social and other reasons, the patient wanted to be treated here. I discussed shock wave lithotripsy. We discussed followup x-rays. All these were discussed at great length. I have discussed this at great length though the patient was not able to really make it so we brought him here today for the above listed procedure. DESCRIPTION OF PROCEDURE: After obtaining informed consent, the patient placed on the table. Routine monitors placed. Timeout was called to confirm patient positioning. We introduced the scope via urethra. We identified the old double J stent, we removed it. A wire passed up to the kidney without difficulty. I used that as my safety wire. I introduced the ureteroscope. I first used the short rigid and then long rigid to go all the way down to the hub to my surprise. We were not all the way up to kidney. The original stone was near the renal pelvic area. So then we used the long rigid ureteroscope. I could not get all the way up to be 100% certain but multiple pictures were taken with retrograde pyelograms and fluoroscopic imaging. I do not see any stone but given the fact that the patient said he has been straining his urine and not passed the stone, I did not want to leave him without a stent. I did not want to leave him with the stent with strings. So at this point, we left the stent with no strings. The patient tolerated the procedure without complication. ADDENDUM: The plan will be for repeat ureteroscopy just to make sure that we do not miss anything. I am really planning to do an outpatient CT scan to see if there is any remnant stone, and if there is not, then we will plan for a cysto and stent removal or cystourethroscopy. I have discussed all these options. The patient tolerated the procedure without complication. Joe Sorensen MD
== END 2018-09-25 15:52 | disposition home or self-care (01) | DRG 661 ==
LOC: ED 03:36 → ERH 06:47 → 3RSO 08:08 → 3RNO 09-24 10:30
PROVIDERS: ADMIT Family Medicine; ATTEND Family Medicine
PROC: 0TP98DZ Removal of Intraluminal Device from Ureter, Via Natural or Artificial Opening Endoscopic (ICD-10-PCS; 2018-09-24)
PROC: 0T778DZ Dilation of Left Ureter with Intraluminal Device, Via Natural or Artificial Opening Endoscopic (ICD-10-PCS; principal; 2018-09-24 07:30)
PROC: BT1FZZZ Fluoroscopy of Left Kidney, Ureter and Bladder (ICD-10-PCS; 2018-09-24 07:30)
DX: N13.2 Hydronephrosis with renal and ureteral calculous obstruction (principal); K80.20 Calculus of gallbladder without cholecystitis without obstruction; I10 Essential (primary) hypertension; G62.9 Polyneuropathy, unspecified; K22.70 Barrett's esophagus without dysplasia; K22.2 Esophageal obstruction; K20.0 Eosinophilic esophagitis; Z85.46 Personal history of malignant neoplasm of prostate; K59.00 Constipation, unspecified; Z85.118 Personal history of other malignant neoplasm of bronchus and lung; Z90.2 Acquired absence of lung [part of]; Z92.3 Personal history of irradiation; Z86.010 Personal history of colon polyps

== ENCOUNTER → 2018-10-01 | Day surgery (SDC) | payer MEDICARE, BC ==
[2018-09-23 09:47] VITALS: BMI 27.2
[~2018-10-01] MED LIST: ACETAMINOPHEN IVPB ONE; HYDROmorphone 0.5 mg/0.5 ml ISec IVP ONE; HYDROmorphone 0.5 mg/0.5 ml ISec IVP PRN; HYDROmorphone 0.5 mg/0.5 ml ISec ONE; Iohexol 240 (50 ml) IVP ONE; Iohexol 240 (50 ml) ONE; Lactated Ringer's 1,000 ML IV SCH; Midazolam 2 MG/2 ML VIAL ONE; Propofol 10 mg/ml Inj (20 ML) ONE; cefTRIAXone (Rocephin) 1 gm Inj ONE; cefTRIAXone 1 GM in NS 100 ML BAG IVPB ONE; ePHEDrine 50 mg/ml Inj ONE
[2018-10-01 06:49] VITALS: RESP 18
[2018-10-01 10:42] VITALS: TEMP 97.7
[2018-10-01 12:14] VITALS: BP 127/75; PULSE 76; O2SAT 96
--- NOTE | 2018-10-01 13:11 | RAD ---
Date of service: 10/01/2018 PROCEDURE: Retrograde pyelogram HISTORY: Rule out obstruction COMPARISON: TECHNIQUE: 20.3 sec of fluoro time. 6.19 mGy cumulative dose. Seven images were submitted FINDINGS: The study shows placement of a wire and scope in the left ureter with opacification of the collecting system. There is placement of a left ureteral stent. IMPRESSION: As above
--- NOTE | 2018-10-01 14:51 | PN ---
DATE: 10/01/2018 IMMEDIATE POSTOPERATIVE NOTE See the history and physical and the operative note. This is an immediate postoperative note. The patient is status post a cystoscopy and stent insertion. He did well today. The diagnosis is urolithiasis and hematuria. The patient is currently resting comfortably, doing well. His vital signs are within normal limits. The final diagnosis is kidney stones. The patient is stable. Plan is for outpatient management. Joe Sorensen MD
--- NOTE | 2018-10-04 10:10 | OP ---
PROCEDURE DATE: 10/01/2018 UROLOGY OPERATIVE REPORT PREOPERATIVE DIAGNOSES: Urolithiasis, hematuria, hydronephrosis, severe renal colic that now resolved. POSTOPERATIVE DIAGNOSES: Urolithiasis, hematuria, hydronephrosis, severe renal colic that now resolved but unable to locate and identify the stone. PROCEDURES: Cystoscopy, removal of double-J stent, left ureteroscopy, left retrograde pyelogram, and insertion of a double-J stent with no dangles. COMPLICATIONS: There were no complications. UROLOGY OPERATIVE FINDINGS: 1. Normal anterior urethra. 2. No stricture. 3. Visually occlusive prostate about 3 cm in length. 4. Unable to go up and down the ureter and I cannot find a stone. 5. At the termination of the procedure, the left retrograde pyelogram has no hydronephrosis left remaining, and there is a double J-stent in place. INDICATIONS: See history and physical for the details. Very pleasant gentleman, presented with colic, but was feeling better with a stent today here we discussed as well with ureteroscopy and discussed other various options. He is here now for the above procedure. DESCRIPTION OF PROCEDURE: After obtaining informed consent, the patient was placed on the table. Routine monitors were placed. Time-out was called to confirm the patient and positioning. We introduced the cystoscope via urethra. We identified the old stent and removed without difficulty. We passed the wire up to the kidney. We confirmed our positioning with fluoroscopic imaging. Once we did this, we then went adjacent to that wire with the ureteroscope. We went first with the sharp rigid. We cannot find any stone. So we went further higher after we went with a long rigid. We actually used a second wire. The second wire was used. The second wire to use little bit of an administrative assistant coordinator. No matter what we did, we could not identify stone. I did a retrograde pyelogram. I kept the wire in place. I confirmed all these with x-rays, but we do not find the stone. At this point, the patient had not passed the stone according to him. At that point, I left him with a double-J stent with dangles. Overall, the patient tolerated the procedure well without complications. The bladder was emptied and removed th cystoscope. The patient tolerated the procedure well without complications. ADDENDUM: I discussed with the patient in the postop period of plan. The plan will be to get a followup KUB it is possible that he has a uric acid stone. The other possibility is that we may be went more proximally. I discussed this with the patient and further plans will follow depending on what we find on the x-ray which we will arrange as an outpatient. Joe Sorensen MD
--- NOTE | 2018-10-04 10:11 | HP ---
DATE OF EXAM: 10/01/2018 UROLOGY ADMISSION REASON FOR ADMISSION: Retrievement of kidney stone. Please see previous notes from last week where we met the patient and we inserted a stent for his severe renal colic. The patient then felt better. He is now here for followup treatments for ureteroscopy, laser lithotripsy. He says in the interim, he has not passed the stone. He has been straining his urine and today he is being brought in for cystourethroscopy, stone basketing, and lasering. PAST MEDICAL AND SURGICAL HISTORY: No other changes. REVIEW OF SYSTEMS: As listed above, noncontributory. MEDICATIONS: See the chart. ALLERGIES: SEE CHART. PHYSICAL EXAMINATION GENERAL: A well-nourished male, in no apparent distress. VITAL SIGNS: Within normal limits including the chart. LUNGS: Clear. HEART: Normal S1, S2. ABDOMEN: Overall soft, nontender. No flank mass appreciated. GENITOURINARY: Normal male phallus without discharge. No testicular masses appreciated. RECTAL: A 20 to 30 g prostate, soft and smooth. DIAGNOSES: Urolithiasis, hematuria, hydronephrosis, severe renal colic. PLAN: As follows: 1. Antibiotic prophylaxis. 2. Cystoscopy. 3. Ureteroscopy. 4. Laser lithotripsy or stone basketing depending the course clinically. Further plans will follow. Risks and benefits discussed with the patient at length. We discussed the possibility . We discussed many different actions. We discussed the options, we are planning to proceed with a plan listed above. ADDENDUM TO THIS NOTE: See the operative note, but basically we did ureteroscopy, we were able to get up to the renal pelvis, but I could not find a stone. The patient had not , so what we did , we left the cysto, we left the stent with no straining and we are going to get a followup x-ray. Again, the possibilities of an uric acid stone exist. So further plans will follow, but we left the stent in the patient. I explained all this to the patient . Joe Sorensen MD [facility] # [id number]
== END | disposition home or self-care (01) ==
LOC: SDS 06:08
PROVIDERS: ATTEND Urology
DX: N13.2 Hydronephrosis with renal and ureteral calculous obstruction (principal)
CPT/HCPCS: 52332; 74420; J0696; J1170; J2001; J2250; J2405; J2704; J3010; J7120; Q9966

== ENCOUNTER 2018-10-02 09:31 | Outpatient (CLI) | payer MEDICARE, BC | END 2018-10-02 09:32 | disposition home or self-care (01) | LOC: RAD 09:31 ==

== ENCOUNTER 2018-10-15 06:38 | Day surgery (SDC) | payer MEDICARE, BC ==
[2018-10-15] MEDS ORDERED: Propofol 10 mg/ml Inj (20 ML) ONE (09:33)
[2018-10-15] MEDS ORDERED: Midazolam 2 MG/2 ML VIAL ONE (09:33)
[2018-10-15] MEDS ORDERED: cefTRIAXone (Rocephin) 1 gm Inj ONE ×2 (09:47→10:33)
[2018-10-15] MEDS ORDERED: ePHEDrine 50 mg/ml Inj ONE (09:48)
[2018-10-15] MEDS ORDERED: HYDROmorphone 0.5 mg/0.5 ml ISec IVP PRN (10:22)
[2018-10-15] MEDS ORDERED: Lactated Ringer's 1,000 ML IV SCH (10:30)
[2018-10-15] MEDS ORDERED: Iohexol 240 (50 ml) ONE (10:33)
[2018-10-15] MEDS ORDERED: HYDROmorphone 0.5 mg/0.5 ml ISec IVP ONE (10:45)
[2018-10-15] MEDS ORDERED: HYDROmorphone 0.5 mg/0.5 ml ISec ONE (11:01)
--- NOTE | 2018-10-15 11:20 | RAD ---
Date of service: 10/15/2018 PROCEDURE: Fluoroscopy less than 1 hr. Retrograde pyelogram HISTORY: STENT REMOVAL COMPARISON: TECHNIQUE: Fluoroscopy was provided in the operating room. 21.4 sec fluoro time. Cumulative dose 7.11 mGy 16 images were submitted FINDINGS: The study shows removal of a left ureteral stent and placement of a wire and instrument in the left ureter. There are no filling defects seen in the collecting system. IMPRESSION: As above
[2018-10-15] MEDS ORDERED: Oxycodone/Acetaminophen 5/325 mg Tab PO PRN (11:37)
[2018-10-15 11:50] VITALS: RESP 18; TEMP 97.7
[2018-10-15 12:35] VITALS: O2SAT 94
[2018-10-15 14:05] VITALS: BP 124/84; PULSE 78
--- NOTE | 2018-10-15 17:46 | HP ---
DATE OF EXAM: 10/15/2018 UROLOGY ADMISSION HISTORY AND PHYSICAL REASON FOR ADMISSION: For treatment of kidney stone. Please see previous notes initially, I met the patient as a consult, but placed the stent. We then monitored him actually to the stone center for various travel reasons, social reasons and maybe even in the insurance reasons, he wanted to be treated here. I was brought him here in a few weeks back and we did a cystourethroscopy, at that time I did not see a stone, but I do want to say that I was not able to stone originally was in the upper ureter and he said he had not been stone, so I left a stent and he is here today now for his similar treatment, but we are going to have long way to do ureteroscope and we are going to making further plans and followup. So, today he is here for cystourethroscopy, laser lithotripsy, again we did discussed various options, we tried getting a CT scan to see if there is a stone there before going to this procedure again, but the authorization process has take too long, patient is uncomfortable with the stent, so we bring him in today for a cystoscopy, ureteroscopy. PAST MEDICAL AND SURGICAL: As listed on the chart, the patient of Dr. Eyad Worley. REVIEW OF SYSTEMS: As listed above, noncontributory. No medical issues right now. MEDICATIONS: See chart. ALLERGIES: SEE CHART. PHYSICAL EXAMINATION GENERAL: A well-nourished female, in no apparent distress. VITAL SIGNS: Within normal limits including the chart. LUNGS: Clear. HEART: Normal S1, S2. ABDOMEN: Overall soft. GENITOURINARY: Normal phallus. There are no testicular masses. RECTAL: 30 g prostate, felt smooth. LABORATORY DATA: See chart. CT scan reported. DIAGNOSES: Left renal colic, left-sided urolithiasis, hydronephrosis, hematuria. ASSESSMENT AND PLAN: 1. In summary, this is a very pleasant with antibiotic prophylaxis. 2. Cystoscopy. 3. Ureteroscopy. 4. Laser or stone basketing in the upper ureter. Today, we have arranged for a long rigid ureteroscope and we are planning to get up to the ureter. Further plans will follow. I did discuss the patient options, I discussed just stone center and in fact that was my preference and recommendation. Today, after discussing various options and various treatment, we are going to do everything here, they do have equipment and we are expecting to find a stone and then to be move it or to clear the urine. Joe Sorensen MD
--- NOTE | 2018-11-01 16:12 | PN ---
DATE: 10/15/2018 See the history and physical for further details. Very pleasant gentleman. He is now status post cystoscopy, ureteroscopy, no laser lithotripsy, no stones were seen. We do not even need a stent. His vital signs are within normal limits. He is doing well. The patient will be managed as an outpatient. He tolerated the procedure well without complications. Joe Sorensen MD
--- NOTE | 2018-11-01 17:40 | HP ---
DATE OF EXAM: 10/15/2018 UROLOGY ADMISSION REASON FOR ADMISSION: Treatment of a kidney stone. HISTORY OF PRESENT ILLNESS: Mr. Sanchez is a very pleasant gentleman, initially presented with a left renal colic. We initially placed a stent, he was doing well at that time. Subsequently, after placing the stent, we actually were planning to bring him up for further treatment. As it turned out, the patient himself is not somebody who will be able to travel out , so he ended up being treated here with a ureteroscopy and potential laser lithotripsy. We brought the patient back here. At that time, we were able to ureteroscope, but we could not end up finding the stone. So, we replaced the stent only because the patient had been straining his urine and had not passed a stone according to himself. Therefore, after discussing options with the patient, we brought him in, we put a stent back in. I did not feel comfortable to leave him without a stent when he was straining his urine and he could not find a stone, so at that time, we put a stent back in. So, today, he is here. Again, I discussed with him various options, we will repeat his imaging. We were even trying to get him a new CAT scan, but for various reasons, his insurance did not approve. So, after discussing various options with the patient, he is here today for another repeat cystoscopy and ureteroscopy and if we see a stone, we are going to do a laser lithotripsy. See the plan as listed below and the addendum at the end. At this time, we are just going to take the stent out, because two ureteroscopes without seeing a stone will sort of confirm our diagnosis and perhaps he passed the stone. His initial stone was small enough to pass, but the patient was reliably straining it and yet did not feel that he passed the stone. PAST MEDICAL AND SURGICAL HISTORY: As listed on the chart, otherwise essentially unremarkable. REVIEW OF SYSTEMS: As listed above, otherwise noncontributory. MEDICATIONS: See the chart. ALLERGIES: SEE THE CHART. LABORATORY DATA: No new labs, see chart. DIAGNOSES: Urolithiasis, hematuria, hydronephrosis, flank pain that is now mostly resolved. PLAN: The plan for today is as follows: We are going to plan for a cystoscopy, removal of the stent, and ureteroscopy. If I see a stone, I am going to do a laser; if I do not see a stone, we are going to just remove the stent. I discussed with the patient all the risks, benefits, and treatment alternatives. Then, further plans will follow. ADDENDUM: See the ureteroscopy procedure note. We ended up not finding a stone, hence I removed everything. Joe Sorensen MD
--- NOTE | 2018-11-01 19:29 | OP ---
PROCEDURE DATE: 10/15/2018 PREOPERATIVE DIAGNOSES: Urolithiasis, hematuria, hydronephrosis, flank pain, all in the left side. POSTOPERATIVE DIAGNOSES: Urolithiasis, hematuria, hydronephrosis, flank pain, all in the left side. PROCEDURE: Cystoscopy, removal of left double J stent, left retrograde pyelogram, left ureteroscopy. COMPLICATIONS: There were no complications. BLOOD LOSS: Less than 10 mL. UROLOGY OPERATIVE FINDINGS: 1. Normal anterior urethra. No strictures. 2. The verumontanum is visually occlusive, about 3 cm. It is pretty occlusive. All within normal limits for age. 3. The other most important finding is that we were able to go up and down the ureter all the way up to the kidney. I did a retrograde pyelogram even and I do not see any filling defect. I do not see any abnormalities. I do not really see hydronephrosis anymore. I do not definitely note any stone and we were able to go up and down the ureter atraumatically. We were able to go up and down gently, carefully, meticulously. With good looks, the entire procedure with fluoroscopic imaging and on the camera, but with not just I am looking, I have my staff, my team looking with me. None of us were able to see any stones. There is no stones in the bladder either. So at this point, we left everything out. The patient tolerated that without complications. See history and physical for further details. DESCRIPTION OF PROCEDURE: After obtaining informed consent, the patient was placed on table. Routine monitors placed. Timeout was called to confirm patient positioning. Antibiotics prophylaxis reviewed. We identified the patient, confirmed with positioning. Antibiotics were used. We introduced the cystoscope via urethra. The entire procedure with the camera. There is no abnormality appreciated. The verumontanum is visually occlusive, about 3 cm, within normal limits for age, but definitely visually occludes the prostate. See below. Ureter was identified. The old stents are removed, wires put up for the safety wire. Now, I go adjacent to that wire. The entire procedure was done with the use of a camera, I have good visualization. I am able to get into the ureteral orifice without difficulty. I can go all the way up to the kidney. See the fluoroscopic imaging. The ureteroscope was all the way up to the kidney to the renal pelvis. At this point, I injected a little contrast just to confirm. I do not see any filling defects. I do not see any abnormalities and again I was able to go up and down the ureter atraumatically, gently, carefully, and quickly, but able to get a good look. I took the wire out, may be because the stone was small and it was hiding behind the wire. So, now we come down to see if we do see anything, we inserted a wire but even with no wire in place, we checked carefully and there is no stone present. At this point, the bladder was emptied and the cystoscope removed. The patient tolerated it without complications. We opted at this point to treat it with a little Toradol. Rectal exam shows a 30 g prostate, was also smooth. The patient tolerated the procedure without complications. See multiple previous dictated notes. Joe Sorensen MD
== END 2018-10-15 15:12 | disposition home or self-care (01) ==
LOC: SDS 06:38
PROVIDERS: ATTEND Urology
DX: N13.2 Hydronephrosis with renal and ureteral calculous obstruction (principal)
CPT/HCPCS: 52351; 74420; 82948; C1758; J0696; J1170; J1885; J2250; J2405; J2704; J3010; J7120; Q9966

== ENCOUNTER 2018-12-10 08:49 | Day surgery (SDC) | payer MEDICARE, BC ==
[2018-12-08 09:50] VITALS: BMI 26.9
[2018-12-10] MEDS ORDERED: Propofol 10 mg/ml Inj (20 ML) ONE ×4 (09:43→10:40)
[2018-12-10] MEDS ORDERED: Sodium Chloride 0.9% 1,000 ML IV SCH (09:45)
[2018-12-10 11:45] VITALS: TEMP 97.4
[2018-12-10 12:18] VITALS: BP 132/79; PULSE 62; RESP 18; O2SAT 96
== END 2018-12-10 12:24 | disposition home or self-care (01) ==
LOC: ENDO 08:49
PROVIDERS: ATTEND Internal Medicine Gastroenterology
DX: K22.70 Barrett's esophagus without dysplasia (principal); K21.0 Gastro-esophageal reflux disease with esophagitis; K29.50 Unspecified chronic gastritis without bleeding; K31.7 Polyp of stomach and duodenum; K44.9 Diaphragmatic hernia without obstruction or gangrene
CPT/HCPCS: 43239; 88305; 88312; 88342; J2001; J2704; J7030; J7040